=== PATIENT | male | born 1940 | race Caucasian/White ===

== ENCOUNTER 2016-12-09 09:32 | Emergency (ER) | payer OTHER ==
[2016-12-09 09:41] VITALS: TEMP 97.6; BMI 33.2
[2016-12-09] MEDS ORDERED: OXYMETAZOLINE 0.05% NASAL SOLUTION 15 ML BOTTLE NS ONE (11:00)
--- NOTE | 2016-12-09 11:00 | PDOC ---
History of Present Illness - General History Source: Patient, Spouse Exam Limitations: No Limitations - History of Present Illness Initial Comments: 12/09/16 11:00 The patient is a 76 year old male, with a significant past medical history of HTN, CAD s/p pacemaker and stents, and on coumadin (INR 4.5 about a week ago), who presents to the emergency department with left nasal bleeding that has been constant for an hour. The patients reports the patient having a similar nose bleed a couple of days prior. Patient reports he is visiting from [place], and has had his nose previous cauterized by his ENT physician. He denies any recent fevers, chills, headache or dizziness. He denies any recent nausea, vomit, diarrhea or constipation. He denies any recent chest pain or shortness of breath. Allergies: Codeine Past surgical history: Pacemaker and cardiac stents. Social History: Nonsmoker. Denies EtOH use and recreational drug use. <Truman Bell - Last Filed: 12/09/16 12:12> - General History Source: Patient <Georgiana Mckinley - Last Filed: 12/09/16 15:51> - General Chief Complaint: Nasal Bleeding Stated Complaint: NOSE Bleeding Time Seen by Provider: 12/09/16 10:06 Past History <Truman Bell - Last Filed: 12/09/16 12:12> - Past Medical History Cancer: Yes (colon) Cardiac Disorders: Yes Diabetes: Yes HTN: Yes Hypercholesterolemia: Yes - Surgical History Abdominal Surgery: Yes (colon resection) Cardiac Surgery: Yes (stent pacemaker) - Psycho/Social/Smoking Cessation Hx Anxiety: No Suicidal Ideation: No Smoking History: Former smoker Have you smoked in the past 12 months: No Information on smoking cessation initiated: No Hx Alcohol Use: No Drug/Substance Use Hx: No Substance Use Type: None <Georgiana Mckinley - Last Filed: 12/09/16 15:51> - Past Medical History Allergies/Adverse Reactions: Allergies Allergy/AdvReac Type Severity Reaction Status Date / Time codeine Allergy Verified 12/09/16 09:34 Home Medications: Ambulatory Orders Cephalexin [Keflex] 500 mg PO BID #10 capsule 12/09/16 Review of Systems - Review of Systems Comments:: 12/09/16 11:01 GENERAL/CONSTITUTIONAL: No fever or chills. No weakness. HEAD, EYES, EARS, NOSE AND THROAT: +nasal bleeding. No change in vision. No ear pain or discharge. No sore throat. CARDIOVASCULAR: No chest pain or shortness of breath. RESPIRATORY: No cough, wheezing, or hemoptysis. GASTROINTESTINAL: No nausea, vomiting, diarrhea or constipation. GENITOURINARY: No dysuria, frequency, or change in urination. MUSCULOSKELETAL: No joint or muscle swelling or pain. No neck or back pain. SKIN: No rash NEUROLOGIC: No headache, vertigo, loss of consciousness, or change in strength/ sensation. ENDOCRINE: No increased thirst. No abnormal weight change. HEMATOLOGIC/LYMPHATIC: No anemia, easy bleeding, or history of blood clots. ALLERGIC/IMMUNOLOGIC: No hives or skin allergy. <Truman Bell - Last Filed: 12/09/16 12:12> *Physical Exam - Vital Signs Last Vital Signs Temp Pulse Resp BP Pulse Ox 97.6 F 69 20 137/65 94 L 12/09/16 09:35 12/09/16 09:35 12/09/16 09:35 12/09/16 09:35 12/09/16 09:35 - Physical Exam Comments: 12/09/16 11:01 GENERAL: Awake, alert, and fully oriented, in no acute distress HEAD: No signs of trauma EYES: PERRLA, EOMI, sclera anicteric, conjunctiva clear ENT: No pallor. There is active bleeding in the left nare. Right nare had old blood but no active bleeding. Posterior pharynx with blood. Auricles normal inspection, hearing grossly normal, Moist mucosa NECK: Normal ROM, supple, JVD, or masses LUNGS: Breath sounds equal, clear to auscultation bilaterally. No wheezes, and no crackles HEART: Regular rate and rhythm, normal S1 and S2, no murmurs, rubs or gallops ABDOMEN: Soft, nontender, normoactive bowel sounds. No guarding, no rebound. No masses EXTREMITIES: Normal range of motion, no edema. No clubbing or cyanosis. No cords, erythema, or tenderness. 2+DP/PT pulses. NEUROLOGICAL: Normal speech, moves all extremities equally. Speech clear. SKIN: Warm, Dry, normal turgor, no rashes or lesions noted. No pallor. <Truman Bell - Last Filed: 12/09/16 12:12> - Vital Signs Last Vital Signs Temp Pulse Resp BP Pulse Ox 97.6 F 69 20 137/65 94 L 12/09/16 09:35 12/09/16 09:35 12/09/16 09:35 12/09/16 09:35 12/09/16 09:35 <Georgiana Mckinley - Last Filed: 12/09/16 15:51> ED Treatment Course - LABORATORY CBC & Chemistry Diagram: 12/09/16 11:04 12/09/16 11:43 <Truman Bell - Last Filed: 12/09/16 12:12> - LABORATORY CBC & Chemistry Diagram: 12/09/16 11:04 12/09/16 11:43 <Georgiana Mckinley - Last Filed: 12/09/16 15:51> Medical Decision Making - Medical Decision Making 12/09/16 12:13 Call made to , awaiting call back. <Truman Bell - Last Filed: 12/09/16 12:12> - Medical Decision Making 12/09/16 10:45 76 yo m h/o HTN CAD, on coumadin recenlty wtih InR 4.5 one week ago, recently held coumadin last 2 days. here wtih c/o nasal bleeding left nare started one hour ago. had similar nose bleed right side few days ago that resolved. no lightheaded. no cp. bleeding continued in ED. pt has had to have cautery for severe nose bleed in the past many years ago, here visiting from [place]. on exam bleeding left nare. active. right nare no active bleeding. post nasopharynx with blood cardiac lung exam unremarkable. plan check INR r/o coagulopathy secondary to coumadin h/h. and rhinorocket for control. 12/09/16 11:39 pt wtih small proximal left ureteral stone, small hydro. call placed to pt urologist dr. Fraire. 12/09/16 12:54 d/w dr Uri OBREGON, will eval pt in ED. pt with minimal continuous bleedin despite rhinorocket and afrin. cbc good. Inr 1.5. 12/09/16 15:39 pt seen by ENT. anterior packin left in place. small additional packing placed. pt bleeding now just very small oozing on guaze, no actual dripping. will see. dr. Grewal[facility] offered observation requesting to be dc home. <Georgiana Mckinley - Last Filed: 12/09/16 15:51> *DC/Admit/Observation/Transfer - Attestations Scribe Attestion: 12/09/16 11:02 Documentation prepared by Truman Bell, acting as medical fee clerk for Georgiana Mckinley MD. <Truman Bell - Last Filed: 12/09/16 12:12> - Discharge Dispostion Admit: No <Georgiana Mckinley - Last Filed: 12/09/16 15:51> Diagnosis at time of Disposition: Anterior epistaxis - Discharge Dispostion Disposition: HOME - Prescriptions Prescriptions: Cephalexin [Keflex] 500 mg PO BID #10 capsule - Patient Instructions Printed Discharge Instructions: Nosebleed Additional Instructions: follow up with Dr. Grewal tomorrow as scheduled. return for any rebleeding or any concerns. while packing in place in the nose, take keflex 500 mg twice daily x 5 days to prevent infections. the prescriptions has been sent to pharmacy. If packing is removed, you can discontinue taking it. return for shortness of breath., dizziness, chest pain rebleeding or any concerns.
[2016-12-09 11:55] LABS: BASOPHIL 0.6 % (0-2.0); EOSINOPHIL 1.2 % (0-4.5); MCH 26.6 pg (25.7-33.7); MCHC 31.3 g/dl (32.0-35.9); MEAN CELL VOLUME 84.7 fl (80-96); MEAN PLT VOLUME 8.4 fl (7.5-11.1); NEUTROPHILS 75.7 % (42.8-82.8); PLATELET COUNT 247 K/MM3 (134-434); RDW 15.5 % (11.9-15.9); WHITE BLOOD COUNT 11.2 K/mm3 (4.0-10.0)
[2016-12-09 12:14] LABS: INR 1.5 (0.82-1.09); PROTHROMBIN TIME (PATIENT) 16.6 SEC (9.98-11.88)
[2016-12-09 12:36] LABS: ALBUMIN 3.4 g/dl (3.4-5.0); ANION GAP 12 (8-16); BILIRUBIN,TOTAL 0.6 mg/dL (0.2-1.0); CALCIUM 9.4 mg/dL (8.5-10.1); CO2 28 mmol/L (21-32); COCKROFT - GAULT 98.42; GLUCOSE,RANDOM 111 mg/dL (74-106); TOT PROT 7.3 g/dl (6.4-8.2)
[2016-12-09 12:37] LABS: ALK PHOS 94 U/L (45-117); SGOT/AST 32 U/L (15-37); SGPT/ALT 42 U/L (12-78)
--- NOTE | 2016-12-09 14:01 | CONSULT ---
Consult Consult Specialty:: ENT Referred by:: Dr. Mckinley Reason for Consultation:: nosebleeding - History of Present Illness Chief Complaint: nosebleed History of Present Illness: 76 yo M with acute epistaxis left side traveling from [place] to [facility] (son getting in 3 d) hx afib, on warfarin, stable dose, BUT had INR 4.9 last week, had held med x 2 days acute left sided bleeding today, to ER, left anterior pack placed, mild oozing had prior nasal bleeding ~2 yrs ago in [place] requiring nasal cauterization, that was last episode before today. since in ER, still mild oozing anteriorly ENT consultation requested - History Source History Provided By: Patient Limitations to Obtaining History: No Limitations - Past Medical History Cardio/Vascular: Yes: AFIB - Alcohol/Substance Use Hx Alcohol Use: No - Smoking History Smoking history: Former smoker Have you smoked in the past 12 months: No Home Medications - Allergies Allergies/Adverse Reactions: Allergies Allergy/AdvReac Type Severity Reaction Status Date / Time codeine Allergy Verified 12/09/16 09:34 - Home Medications Home Medications (free text): warfarin Family Disease History - Family Disease History Family Disease History: Other: Son (alive and well) Physical Exam Vital Signs: Vital Signs Temperature 97.6 F 12/09/16 09:35 Pulse Rate 69 12/09/16 09:35 Respiratory Rate 20 12/09/16 09:35 Blood Pressure 137/65 12/09/16 09:35 O2 Sat by Pulse Oximetry (%) 94 L 12/09/16 09:35 Constitutional: Yes: Well Nourished, No Distress, Calm Eyes: Yes: WNL HENT: Yes: Other (ears WNL, hearing WNL, mouth and throat clear, NO bleeding in pharynx Nose: moderate to severely deviated septum to left. no bleeding right, left side has anterior pack in place, no active bleeding some dry blood beneath nose but no further active bleeding. voice clear) Neck: Yes: WNL Respiratory: Yes: WNL Labs: CBC, BMP 12/09/16 11:04 12/09/16 11:43 Problem List - Problems (1) Anterior epistaxis Assessment/Plan: acute epistaxis left, now controlled on warfarin, INR 1.5 today deviated septum contributory Recommend: continue nasal pack consider removal and possible cauterization tomorrow 12-10-16 ok for in office if pt otherwise stable for discharge home today Code(s): R04.0 - EPISTAXIS (2) Deviated nasal septum Assessment/Plan: longstanding, incidental likely contributory to the bleeding from left side. Thank you for consultation, Billy Grewal MD FACS Code(s): J34.2 - DEVIATED NASAL SEPTUM
[2016-12-09 16:49] VITALS: BP 162/91; PULSE 71
== END 2016-12-09 16:49 | disposition home or self-care (01) ==
LOC: JER 09:32
PROC: 0W3Q7ZZ Control Bleeding in Respiratory Tract, Via Natural or Artificial Opening (ICD-10-PCS; principal; 2016-12-09)
DX: R04.0 Epistaxis (principal); J34.2 Deviated nasal septum; I25.10 Atherosclerotic heart disease of native coronary artery without angina pectoris; I10 Essential (primary) hypertension; Z95.5 Presence of coronary angioplasty implant and graft; E11.9 Type 2 diabetes mellitus without complications; E78.00 Pure hypercholesterolemia, unspecified; D68.9 Coagulation defect, unspecified; Z79.01 Long term (current) use of anticoagulants; Z95.0 Presence of cardiac pacemaker
CPT/HCPCS: 30901-25; 36415; 80053; 85025; 85610; 99283-25